=== PATIENT | female | born 1975 | race Two or more races ===

== ENCOUNTER → 2025-01-13 | Day surgery (SDC) | payer OTHER ==
[~2025-01-13] MED LIST: BUPIVACAINE LIPOSOME/PF 266 MG/20 ML VIAL IJ ONE; HEMOSTATIC MATRIX 1 KIT KIT TOP ONE; METRONIDAZOLE/SODIUM CHLORIDE 500 MG/100 ML PIGGYBACK IV ONE; POVIDONE-IODINE 118 ML BOTT TOP ONE; SYNTHROID50 MCG PO; TRIAMCINOLONE ACETONIDE 40 MG/ML VIAL IJ ONE
== END | disposition home or self-care (01) ==
LOC: ADM 12-25 12:15 → CIR.AMB 12-30 07:00
PROVIDERS: ATTEND Colon & Rectal Surgery
DX: K64.2 Third degree hemorrhoids (principal); K64.4 Residual hemorrhoidal skin tags; L91.0 Hypertrophic scar